=== PATIENT | female | born 1965 | race Caucasian/White ===

== ENCOUNTER → 2021-01-14 | Outpatient (CLI) | payer BC ==
[~2021-01-14] MED LIST: ATOR10TA60 PO; GADOTERATE 7.5 MMOL/15ML VIAL. IVP ONE; INTE30DI IM; MODA100T2 PO; TAMS0.4C97 PO
--- NOTE | 2021-01-14 16:30 | KCIC ---
EXAM: Brain MRI without and with contrast. HISTORY: Multiple sclerosis. TECHNIQUE: Multiplanar, multisequence magnetic resonance imaging of the brain was performed without a nd with contrast. COMPARISON: 04/19/2016 FINDINGS: There is no restricted diffusion to suggest acute or subacute infarction. There is mild inc reased signal scattered throughout the cerebral white matter on diffusion weighted images due to T2 s ken through artifact. This corresponds with multiple scattered focal areas of T2 such FLAIR hyperint ensity in a mildly periventricular distribution. No convincing infratentorial lesion is seen. There is no mass effect or midline shift. There is no hydrocephalus. There is mild paranasal sinus be cause of thickening. The orbits and mastoid air cells are unremarkable. There are normal flow voids w ithin the cerebral vessels. There is no suspicious calvarial lesion. No enhancing lesion is seen. IMPRESSION: 1. Scattered T2/FLAIR hyperintense lesions throughout the cerebral white matter in a predominantly pe riventricular distribution, consistent with known demyelinating disease. The number and size of lesio ns is not significantly changed compared to the prior study. No enhancing lesion is seen to suggest a cute demyelination. 2. No acute intracranial finding. Electronically signed by: Elinor Cottrell MD (01/14/2021 4:28 PM) [id number]
== END ==
LOC: KCIC MRI 12:57
PROVIDERS: ATTEND Psychiatry & Neurology Neurology with Special Qualifications in Child Neurology
DX: G35 Multiple sclerosis (principal); G93.89 Other specified disorders of brain
CPT/HCPCS: 70553; 82565; A9575